=== PATIENT | male | born 1995 ===

== ENCOUNTER 2017-03-20 23:55 | Emergency (ER) | payer OTHER ==
[2017-03-21 00:17] VITALS: RESP 16
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
[2017-03-21 03:19] VITALS: BP 111/71; PULSE 73; TEMP 98.2; O2SAT 100
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
== END 2017-03-21 06:49 | disposition home or self-care (01) ==
LOC: H.ER 23:55
DX: M54.9 Dorsalgia, unspecified (principal); Z88.0 Allergy status to penicillin